=== PATIENT | male | born 1960 | race Caucasian/White ===

== ENCOUNTER 2018-12-18 21:00 | Inpatient (IN) | payer SELFPAY ==
[~2018-12-18] VITALS: Ht 185.4 cm; Wt 73.2 kg
[2018-12-18 21:06] VITALS: Ht 185.4 cm; Wt 73.2 kg
--- NOTE | 2018-12-18 22:00 | NUR ---
PT BIB SELF WITH C/O WORSENING LEFT SIDED NECK SWELLING, WEIGHT LOSS WITH DECREASED APPETITE, GENERALIZED FATIGUE, AND INTERMITTENT VOMITING X 4 MONTHS. NO VOMTING NOTED A THIS TIME. PT DENIES ANY PAIN. PT ALSO C/O DRY COUGH AND GREEN DISCHARGE FROM BILATERAL NARES X 2 YEARS. PT IS AAOX4, NO DISTRESS NOTED, RESP E/U. PT GOWNED, PLACED IN FULL CM, NSR, VSS. MSE COMPLETED BY FATUMA AGUILA.
[2018-12-18 23:22] LABS: BASOPHIL % 0.1 % (0-2)
[2018-12-18 23:26] LABS: PLATELET COUNT 119 x10^3mcL (130-400); RED CELL DISTRIBUTION WIDTH 16.1 % (11.5-14.5)
[2018-12-18 23:45] LABS: ALBUMIN 2.8 g/dL (3.4-5.0); BILIRUBIN TOTAL 0.8 mg/dL (0.20-1.00); CARBON DIOXIDE 28.5 mmol/L (21-32); CREATININE SERUM 2.9 mg/dL (0.7-1.3); POTASSIUM SERUM 4.4 mmol/L (3.5-5.1); TOTAL PROTEIN, SERUM 7.5 g/dL (6.4-8.2)
[2018-12-18 23:46] LABS: CALCIUM 14.3 mg/dL (8.5-10.1)
--- NOTE | 2018-12-19 00:22 | NUR ---
PT TAKEN OFF THE FLOOR VIA TO CT BY ZINC MINER BLASTING VIA WHEELCHAIR.
--- NOTE | 2018-12-19 00:30 | NUR ---
PT RETURNED TO BED FROM CT VIA WHEELCHAIR WITHOUT INCIDENT
--- NOTE | 2018-12-19 00:48 | NUR ---
MEDICATED PT PER MD ORDER, SEE EMAR, FLUIDS INFUSING NO PROB. PT IS AOOX4, NO DISTRESS NOTED, RESP E/U. TUNRED OFF THE LIGHTS FOR PT COMFORT, PT LAYING IN BED. PT ON FULL CM, VSS, NSR, WILL CONT TO MONITOR.
--- NOTE | 2018-12-19 02:35 | NUR ---
PT IS AAOX4, NO DISTRESS NOTED, RESP E/U. INTRUCTED PT NEED FOR URINE SAMPLE. PT WILL NOTIFY MT WHEN HE IS ABLE TO USE RESTROOM. WILL CONT TO MONITOR. PT ON FULL CM, VSS, NSR.
[2018-12-19 02:47] LABS: CHOLESTEROL/HDL RATIO 5.4
[2018-12-19 02:55] LABS: FREE T4 1.5 ng/dL (0.76-1.46); FREE THYROXINE INDEX 2.8 ug/dL (1.4-4.5); T4(THYROXINE) 7.4 ug/dL (4.7-13.3)
[2018-12-19 02:56] LABS: T3 TOTAL 0.69 ng/mL
--- NOTE | 2018-12-19 03:12 | NUR ---
PT AMBULATED TO RESTROOM WITH A STEADY GAIT AND BACK TO BED WITHOUT INCIDENT.
--- NOTE | 2018-12-19 03:32 | NUR ---
GAVE REPORT TO KELLY SILVA ON [facility]G UNIT, WHO WILL RESUME FURTHER CARE OF THIS PATIENT.
--- NOTE | 2018-12-19 03:35 | NUR ---
PT RECEIVED FROM ED VIA GRNEY ACCOMPANIED BY RN. PT A/O X4, ABLE TO MAKE NEEDS KNOWN. LEFT-SIDED NECK SWELLING NOTED. MED-SURG, DENIES ANY CP/PRESSURE. PULSES PALPABLE, NO EDEMA PRESENT. LUNG SOUNDS DIM TO KHAI BASES, BREATHING IS EVEN AND UNLABORED ON RA, DENIES SOB, NO RESP DISTRESS NOTED. PT REPORTS COUGH X2 YRS. ABD SOFT AND FLAT, BOWEL TONES ACTIVE X4 QUAD, DENIES N/V. PT REPORTS INTERMITTENT N/V, BUT DENIES ANY AT THIS TIME. VOIDS FREELY, BRP. AMBULATORY WITH STEADY GAIT. SKIN IS WARM AND DRY, INTACT. PT DENIES HAVING ANY PAIN AT THIS TIME. IV TO RAC (18g), PATENT AND INTACT, SITE FREE FROM REDNESS OR SWELLING. ORIENTED PT TO ROOM AND CALL LIGHT. NO ACUTE DISTRESS NOTED. BED IN LOWEST SETTING, SIDE RAILS UP X2, CALL LIGHT WITHIN REACH. WILL CONT TO MONITOR.
--- NOTE | 2018-12-19 03:46 | NUR ---
DR LAY AT BEDSIDE DISCUSSING XRAY RESULTS AND POC. ALL QUESTIONS AND CONCERNS ADDRESSED.
[2018-12-19 04:09] VITALS: BP 117/72
[2018-12-19 06:15] VITALS: BP 94/54
--- NOTE | 2018-12-19 06:33 | NUR ---
PT SLEPT WELL THROUGHOUT THE EVENING. BREATHING IS EVEN AND UNLABORED, NO RESP DISTRESS NOTED. PT DENIES HAVING ANY PAIN AT THIS TIME. IVF INFUSING WELL, SITE FREE FROM REDNESS OR SWELLING. NO ACUTE CHANGES ENCOUNTERED DURING SHIFT. ALL NEEDS MET. CALL LIGHT WITHIN REACH. WILL ENDORSE CARE TO AM NURSE.
[2018-12-19 06:40] LABS: CALCIUM 12.3 mg/dL (8.5-10.1); CARBON DIOXIDE 24.9 mmol/L (21-32); CREATININE SERUM 2.6 mg/dL (0.7-1.3); POTASSIUM SERUM 3.9 mmol/L (3.5-5.1)
--- NOTE | 2018-12-19 07:01 | NUR ---
PT IN NO ACUTE DISTRESS. CONTINUITY OF CARE ENDORSED TO CAITLIN SILVA. ALL QUESTIONS AND CONCERNS ADDRESSED.
[2018-12-19 07:22] VITALS: BP 93/51
--- NOTE | 2018-12-19 07:40 | NUR ---
RECEIVED PT FROM BREAKER LAYER. PT AWAKE, ALERT. A/OX4. PT ON ROOM AIR WITH DIMINISHED LUNGS SOUNDS NOTED. NO RESP DISTRESS AT THIS TIME. PT DENIES ANY PAIN. PT NOTED TO HAVE LEFT SIDED NECK SWELLING WITH NO PAIN NOTED. IV ACCESS RAC INFUSING NS AT 100ML/HR. C/D/I. ACTIVE BOWEL SOUNDS NOTED, PT REPORTS NO ISSUES WITH ELIMINATION AT THIS TIME. PERIPHERAL PULSES PALPABLE, NO EDEMA NOTED. SAFETY MEASURES IN PLACE, BED LOW AND LOCKED. CALL LIGHT WITHIN REACH.
[2018-12-19 07:44] LABS: PLATELET COUNT 88 x10^3mcL (130-400)
--- NOTE | 2018-12-19 08:15 | NUR ---
RECEIVED CALL FROM LAB, PT WBC 2.1. DR NU TORIBIO.
[2018-12-19 08:53] LABS: microscopic required? NO
[2018-12-19 11:11] LABS: AMPHETAMINE QUAL UR NONE DETECTED (See below)
--- NOTE | 2018-12-19 12:31 | NUR ---
Initial Nutrition Assessment- 207/A WEN LEWIS HR IA Dx: Hyperkalemia, acute kidney injury, new CA diagnosis PMHx: none PSHx: none Labs: (12/19) BUN 37H, CREAT 2.6H, A1C 6.6H Meds: Humulin, lactinex, NS, Zofran Diet: CCHO PO Intake: (12/19) breakfast 100%, Ht: 185.42 cm (73") Wt: 73kg (160#) BMI: 21.3 kg/m2 IBW: 184# (84 kg) %IBW: 87 UBW: 200# last year (not exactly sure) Age: 58/M Food Allergies: NKFA Skin: intact Scott: 21 Edema: none GI: last BM: 12/18 Trigger: Unintentional wt loss >10# x 1 month Per H&P, Patient is a 58 year old male with no PMH presents with left neck swelling for 4 months. Patient denies any pain there. Patient reports following up with a clinic in [place] regarding the swelling. Blood work and US were done. His blood work showed a WBC of 2000. Patient did not get his US result due to loss in follow up with PCP. Patient admits to unintentional weight loss of 40 lbs in 4 months and cough with brown sputum production for 2 years. Patient denies fever, chills, headache, shortness of breath, chest pain, abdominal pain, nausea or vomiting. Pt reports having intermittent N/V x 2 years with poor appetite and unintentional wt loss of 40#(per shift reassessment) RDN visit(12/19): Pt was awake and said that he ate all of his breakfast this morning and his appetite has improved. Pt does not have any N/V/D/C at this time. He said that he has lost weight but was unable to mention number of pounds and duration. Pt is willing to consume Glucerna dietary supplement to support weight gain. Problem with: N: no V: no D: no C:no Problems with: Chewing/Swallowing: no Current appetite: Good currently but has been poor chronically Recent wt change: pt was not sure about number of pounds and duration. Vitamin/Supplement use: Vitamin C, MVI, B12 Special diet at home: Regular Physical activity: work involves heavy physical activity level Education: No specific diet education was provided at this time. Estimated Nutritional Needs Based on actual body weight 73 kg Energy: 0210-7637 kcal/d (30-35 kcal/kg-weight gain, new cancer diagnosis) Protein: 88-109 g/d (1.2-1.5g/kg)-weight gain, new cancer dx and preservation of lean body mass Fluid: 0215-6241 ml/d (1 ml/kcal-fluid balance) or per doctor Nutrition Diagnosis 1. Unintentional weight loss related to medical condition as evidenced by self -reported significant weight loss of 40 lbs x 4 months. Intervention 1. Continue CCHO diet. 2. Recommend Glucerna BID to support weight gain. Monitor/Evaluate Goal: PO intake at least 75% of estimated needs Monitor: PO intake, Labs, GI function F/U in 3-5 days as moderate risk 12/22-12/24
--- NOTE | 2018-12-19 12:32 | NUR ---
1. Continue [facility] diet. 2. Recommend Glucerna BID to support weight gain.
--- NOTE | 2018-12-19 13:16 | NUR ---
PT RESTING WITH NO DISCOMFORT OR DISTRESS NOTED. ALL NEEDS MET AT THIS TIME. SAFETY MEASURES MAINTAINED. CALL LIGHT WITHIN REACH.
--- NOTE | 2018-12-19 13:44 | NUR ---
PT OFF THE FLOOR AT THIS TIME TO HAVE ULTRASOUND GUIDED BIOPSY. TAKEN BY WHEELCHAIR. SAFETY MAINTAINED.
[2018-12-19 14:12] LABS: BAND NEUTROPHIL 0 % (0-10); SEGMENTED NEUTROPHILS 76 % (37-75)
[2018-12-19 14:13] LABS: ATYPICAL LYMPH 4 %; BASOPHIL 0 % (0-2); MONOCYTE 14 % (0-7); PLATELET MORPHOLOGY PLATELETS DECREASED; rbc morphology (normal/abnorm) ABNORMAL (NORMAL)
[2018-12-19 14:36] VITALS: BP 113/66
[2018-12-19 14:43] LABS: UA SPECIFIC GRAVITY 1.015 (1.005-1.035)
[2018-12-19 14:44] LABS: urine erythrocyte NEGATIVE (NEGATIVE)
--- NOTE | 2018-12-19 15:30 | NUR ---
PT RESTING IN NO ACUTE DISTRESS OR DISCOMFORT. ABLE TO MAKE NEEDS KNOWN. CALL LIGHT WITHIN REACH.
--- NOTE | 2018-12-19 18:13 | NUR ---
PT RESTING IN NO ACUTE DISTRESS OR DISCOMFORT NOTED. ALL NEEDS TENDED TO THROUGHOUT SHIFT. PT STABLE AT THIS TIME. WILL CONTINUE TO MONITOR AND ENDORSE CARE TO SENIOR DRUPAL DEVELOPER. SAFETY MAINTAINED.
--- NOTE | 2018-12-19 19:57 | NUR ---
Awake and verbally responsive. No respiratory distress noted on room air. Denies pain at this time. Denies n/v. Left neck swelling noted. Will cont.to monitor. Call light within reach.
[2018-12-19 20:56] VITALS: BP 107/58
--- NOTE | 2018-12-20 04:03 | NUR ---
Afebrile. No significant change in condition noted. Denies pain. Continue on IV rocephin and zithromax. In no apparent distress.
[2018-12-20 05:25] VITALS: BP 107/58
[2018-12-20 05:26] VITALS: BP 107/62
[2018-12-20 06:50] LABS: CALCIUM 12.5 mg/dL (8.5-10.1); CARBON DIOXIDE 23.2 mmol/L (21-32); CREATININE SERUM 2.4 mg/dL (0.7-1.3); POTASSIUM SERUM 3.6 mmol/L (3.5-5.1)
[2018-12-20 07:21] VITALS: BP 105/68
--- NOTE | 2018-12-20 07:30 | NUR ---
PATIENT SLEEPING IN BED, AROUSABLE. PATIENT DENIES SOB, ON ROOM AIR. PATIENT DENIES PAIN AT THIS TIME. NO ACUTE DISTRESS NOTED AT THIS TIME. NS IV INFUSING TO RAC AT 100ML/HR, IV SITE CDI, NO S/S OF INFILTRATION. CALL LIGHT WITHIN REACH, BED IN LOW POSITION, FOR SAFETY PRECAUTION. WILL CONTINUE TO MONITOR FOR CHANGES.
--- NOTE | 2018-12-20 09:30 | NUR ---
DR JUDGE AWARE PATIENT WBCS ARE 1.8, PREVIOUS WBCS WERE 2.8. PATIENT HAS NEW DIAGNOSIS OF CA, AND HAS WBCS TRENDING DOWN. NO NEW ORDERS WERE SET FOR NEUTROPENIC PRECAUTIONS BUT WILL BEGIN TAKING STEPS IN PROTECTING THE PATIENT.
[2018-12-20 09:45] LABS: PLATELET COUNT 82 x10^3mcL (130-400); RED CELL DISTRIBUTION WIDTH 16.4 % (11.5-14.5)
--- NOTE | 2018-12-20 10:30 | NUR ---
PATIENT WAS TRANSFERRED TO ROOM 221B VIA WHEELCHAIR. MASKED WERE PLACED BY DOORWAY FOR PRECAUTION. CALL LIGHT WITHIN REACH, BED IN LOW POSITION, WILL CONTINUE TO MONITOR.
--- NOTE | 2018-12-20 13:20 | NUR ---
PATIENT RESTING IN BED EATING LUNCH, PATIENT TOLERATING MEAL. PATIENT DENIES PAIN AT THIS TIME. NO ACUTE DISTRESS NOTED. CALL LIGHT WITHIN REACH, BED IN LOW POSITION, WILL CONTINUE TO MONITOR FOR CHANGES.
[2018-12-20 15:04] LABS: BAND NEUTROPHIL 0 % (0-10); MONOCYTE 28 % (0-7); SEGMENTED NEUTROPHILS 64 % (37-75)
[2018-12-20 15:05] LABS: PLATELET MORPHOLOGY PLATELETS DECREASED
[2018-12-20 16:17] VITALS: BP 121/75
[2018-12-20 16:20] LABS: rbc morphology (normal/abnorm) ABNORMAL (NORMAL)
--- NOTE | 2018-12-20 18:10 | NUR ---
PATIENT RESTING IN BED WATCHING TV. PATIENT DENIES PAIN AT THIS TIME. NO ACUTE DISTRESS NOTED, PATIENT ON ROOM AIR. NO ACUTE CHANGES THROUGH OUT SHIFT, PATIENT IS STABLE. 1/2 NS INFUSING TO RAC AT 250ML/HR, IV SITE CDI, NO REDNESS, SWELLING OR PAIN. CALL LIGHT WITHIN REACH, BED IN LOW POSITION. WILL CONTINUE TO MONITOR AND ENDORSE REPORT TO NIGHT NURSE.
--- NOTE | 2018-12-20 19:35 | NUR ---
RECEIVED PT IN BED AWAKE, ALERT,ORIENTED X4. NO SOB NOTED ON ROOM AIR. W/ SWELLING NOTED ON THE LT SIDE OF HIS NECK, PT DENIED HAVING PAIN AT THIS TIME. NO C/O ABDL DISCOMFORT. W/ IVF 1/2 NS AT 250 CC/HR VIA RTAC. CALL LIGHT W/IN REACH.
[2018-12-20 20:43] VITALS: BP 133/72
--- NOTE | 2018-12-21 00:51 | NUR ---
PT SLEEPING SOUNDLY ON ROUNDS. NO C/O PAIN OR DISCOMFORT AT THIS TIME.
--- NOTE | 2018-12-21 05:16 | NUR ---
PT SLEPT FAIRLY. HE REMAINS ALERT AND ORIENTED X4. HE HAD NO C/O PAIN. HE AMBULATES W/O DIFFICULTY . IVF 1/2 NS INFUSING WELL AT 250 CC/HR VIA RTAC. ALL NEEDS ATTENDED TO.
[2018-12-21 05:32] VITALS: BP 119/72
[2018-12-21 06:46] LABS: ALBUMIN 2.2 g/dL (3.4-5.0); BILIRUBIN TOTAL 0.4 mg/dL (0.20-1.00); CALCIUM 12.3 mg/dL (8.5-10.1); CARBON DIOXIDE 23.5 mmol/L (21-32); POTASSIUM SERUM 3.5 mmol/L (3.5-5.1); TOTAL PROTEIN, SERUM 5.9 g/dL (6.4-8.2)
--- NOTE | 2018-12-21 07:35 | NUR ---
RECEIVED PT. IN BED A/A/O X4. NO SOB, NO N/V NOTED. PT. DENIES ANY PAIN AT THIS TIME. 1/2NS RUNNING AT 250 CC/HR VIA IV SITE AT R AC. SCD TO BLE MAINTAINED. BED IN LOW POS., CALL LIGHT WITHIN REACH. SIDE RAILS UP X3.
[2018-12-21 08:35] LABS: PLATELET COUNT 80 x10^3mcL (130-400); RED CELL DISTRIBUTION WIDTH 16.1 % (11.5-14.5)
--- NOTE | 2018-12-21 08:50 | NUR ---
REPORTED WBC (1.9) TO DR. JUDGE. NO FURTHER ORDER RECEIVED AT THIS TIME.
[2018-12-21 09:44] VITALS: BP 100/64
[2018-12-21 11:45] LABS: ATYPICAL LYMPH 3 %; BAND NEUTROPHIL 6 % (0-10); BASOPHIL 0 % (0-2); MONOCYTE 12 % (0-7); SEGMENTED NEUTROPHILS 73 % (37-75); rbc morphology (normal/abnorm) ABNORMAL (NORMAL)
[2018-12-21 11:46] LABS: PLATELET MORPHOLOGY PLATELETS DECREASED
[2018-12-21 18:23] VITALS: BP 112/70
--- NOTE | 2018-12-21 19:00 | NUR ---
REMAINS IN STABLE CONDITION AT THIS TIME. WILL CONTINUE TO MONITOR.
--- NOTE | 2018-12-21 19:25 | NUR ---
RECEIVED PT IN BED AWAKE AND READING A NEWSPAPER. HE IS ALERT,ORIENTED X4. NO SOB NOTED ON ROOM AIR. LT SIDE OF NECK W/ SWELLING. HE DENIED HAVING PAIN AT THIS TIME. NO C/O ABDL DISCOMFORT. IVF 1/2 NS INFUSING AT 250 CC/HR VIA RTAC. CALL LIGHT W/IN REACH.
[2018-12-21 21:21] VITALS: BP 117/73
--- NOTE | 2018-12-22 00:30 | NUR ---
PT ASLEEP SOUNDLY AND EASILY AROUSABLE. NO C/O DISCOMFORT AT THIS TIME.
[2018-12-22 05:27] VITALS: BP 118/72
[2018-12-22 06:14] LABS: CALCIUM 12.4 mg/dL (8.5-10.1); CARBON DIOXIDE 22.9 mmol/L (21-32); CREATININE SERUM 1.8 mg/dL (0.7-1.3); POTASSIUM SERUM 3.8 mmol/L (3.5-5.1)
--- NOTE | 2018-12-22 06:22 | NUR ---
PT SLEPT AT LONG INTERVALS. HE HAD NO C/O PAIN. NO EPISODE OF SOB OR RESP. DISTRESS. HE AMBULATES W/O DIFFICULTY. IVF 1/2 NS INFUSING WELL AT 250 CC/HR VIA RTAC.
[2018-12-22 06:52] LABS: PLATELET COUNT 88 x10^3mcL (130-400); RED CELL DISTRIBUTION WIDTH 15.9 % (11.5-14.5)
--- NOTE | 2018-12-22 07:10 | NUR ---
RECEIVED PT FROM CARPENTER'S ASSISTANT RN. Augie/JOSE MANUEL. MED SURG. DENIES CHEST PAIN/PRESSURE. RESPIRATIONS EQUAL AND UNLABORED ON RA. DENIES SOB. LT NECK EDEMA NOTED. NO REDNESS. PT DENIES ANY PAIN AT THIS TIME. IV TO RAC PATENT AND INFUSING. NO REDNESS OR SWELLING NOTED. PT SITTING UP IN BED EATING BREAKFAST. WILL CONTINUE TO MONITOR. CALL LIGHT IN REACH. BED IN LOWEST POSITION.
[2018-12-22 09:06] VITALS: BP 112/66
--- NOTE | 2018-12-22 09:11 | NUR ---
PT SITTING UP IN BED. NO ACUTE RESP DISTRESS NOTED ON RA. GIVEN PO MEDS. TOLERATED WELL. VSS. PT DENIES ANY PAIN AT THIS TIME. IV PATENT AND INFUSING TO RFA. NO REDNESS OR SWELLING NOTED. WILL CONTINUE TO MONITOR. CALL LIGHT IN REACH. BED IN LOWEST POSITION.
[2018-12-22 10:33] LABS: BAND NEUTROPHIL 0 % (0-10); MONOCYTE 6 % (0-7); PLATELET MORPHOLOGY PLATELETS DECREASED; SEGMENTED NEUTROPHILS 88 % (37-75); rbc morphology (normal/abnorm) ABNORMAL (NORMAL)
--- NOTE | 2018-12-22 10:33 | NUR ---
PT SITTING UP AT BEDSIDE. NO ACUTE RESP DISTRESS NOTED ON RA. PT DENIES ANY PAIN AT THIS TIME. IV PATENT AND INFUSING TO RAC. NO REDNESS OR SWELLING NOTED. WILL CONTINUE TO MONITOR. CALL LIGHT IN REACH. BED IN LOWEST POSITION.
--- NOTE | 2018-12-22 11:33 | NUR ---
PT SITTING UP IN BED. NO ACUTE RESP DISTRESS NOTED ON RA. IV PATENT AND INFUSING. NO REDNESS OR SWELLING NOTED. GIVEN PO MEDS. TOLERATED WELL. BLOOD SUGAR CHECKED 96. NO COVERAGE NEEDED. PT DENIES ANY PAIN AT THIS TIME. WILL CONTINUE TO MONITOR. CALL LIGHT IN REACH. BED IN LOWEST POSITION.
--- NOTE | 2018-12-22 13:27 | NUR ---
PT SITTING UP AT BEDSIDE. NO ACUTE RESP DISTRESS NOTED ON RA. GIVEN PO MEDS. TOLERATED WELL. PT DENIES ANY PAIN AT THIS TIME. WILL CONTINUE TO MONITOR. CALL LIGHT IN REACH. BED IN LOWEST POSITION.
--- NOTE | 2018-12-22 16:02 | NUR ---
PT SITTING UP IN BED WATCHING TV. NO ACUTE RESP DISTRESS NOTED ON RA. IV PATENT AND INFUSING. NO REDNESS OR SWELLING NOTED. PT DENIES ANY PAIN AT THIS TIME. BLOOD SUGAR CHECKED WAS 124. NO COVERAGED NEEDED. WILL CONTINUE TO MONITOR. CALL LIGHT IN REACH. BED IN LOWEST POSITION.
[2018-12-22 17:43] VITALS: BP 115/68
--- NOTE | 2018-12-22 18:54 | NUR ---
PT SITTING UP IN CHAIR AT BEDSIDE. NO ACUTE RESP DISTRESS NOTED ON RA. PT DENIES ANY PAIN AT THIS TIME. IV TO RAC PATENT AND INFUSING. NO REDNESS OR SWELLING NOTED. WILL ENDORSE TO WILDLIFE VETERINARIAN RN. CALL LIGHT IN REACH. BED IN LOWEST POSITION.
[2018-12-22 19:15] VITALS: BP 132/74
--- NOTE | 2018-12-22 19:15 | NUR ---
RECEIVED PT SITTING ON A CHAIR AT THIS TIME.DENIES ANY PAIN OR DISCOMFORT.BP 132/74 MMHG,HR 93.L SIDED SWELLING TO NECK NOTED.DENIES PAIN TO SITE.DENIES PAIN WHEN CHEWING OR SWALLOWING.WILL CONTINUE TO MONITOR.
--- NOTE | 2018-12-23 04:44 | NUR ---
PT SLEPT WELL ALL NIGHT.DENIES ANY PAIN OR DISCOMFORT.NO ASE NOTED FROM ROCEPHIN AND ZITHROMAX IV ATB.ALL NEEDS MET.WILL CONTINUE TO MONITOR.
[2018-12-23 06:01] LABS: calcium (part of PTHIC) 12.3 mg/dL (8.7-10.2)
[2018-12-23 06:07] VITALS: BP 121/78
[2018-12-23 06:43] LABS: CALCIUM 12.1 mg/dL (8.5-10.1); CARBON DIOXIDE 24.4 mmol/L (21-32); CREATININE SERUM 1.7 mg/dL (0.7-1.3); POTASSIUM SERUM 4.2 mmol/L (3.5-5.1)
--- NOTE | 2018-12-23 07:18 | NUR ---
RECEIVED PATIENT FROM CLINICAL PSYCHIATRIST NURSE. PATIENT IS AWAKE, ALERT AND ORIENTED. ON ROOM AIR, DENIES SOB, BREATHING EVEN AND UNLABORED. DENIES CHEST PAIN. EDEMA NOTED TO LEFT NECK, PATIENT DENIES DIFFICULTY SWALLOWING. IVF INFUSING WELL ORDERED, NO S/S ERYTHEMA AT SITE. CALL LIGHT WITHIN EASY REACH. WILL CONTINUE PLAN OF CARE.
[2018-12-23 07:40] LABS: PLATELET COUNT 81 x10^3mcL (130-400)
[2018-12-23 08:09] VITALS: BP 123/71
--- NOTE | 2018-12-23 10:41 | NUR ---
DR JUDGE NOTIFIED OF AM LABS: WBC 1.8. NO FURTHER ORDERS AT THIS TIME.
--- NOTE | 2018-12-23 11:36 | NUR ---
1. Continue CCHO diet with Glucerna BID.
--- NOTE | 2018-12-23 11:36 | NUR ---
Follow-up Nutrition Assessment- 221/B WEN LEWIS MERRICK MR Dx: Hyperkalemia, acute kidney injury, new CA diagnosis Labs: (12/23) BG 142H, BUN 35H, CREAT 1.7H, A1C 6.6H, WBC 1.8L Meds: D50%, Humulin, lactinex, zofran Diet: CCHO PO intake: (12/21-12/22) 100% Weights: (12/19) 73 kg Skin: intact Scott: 22 Edema: noted to LT neck Last BM: 12/21 RDN visit (12/23): Pt was awake and said that he ate all of his breakfast this morning but his appetite is fair. Pt does not have any N/V/D/C at this time. Pt said that he is consuming Glucerna twice a day and finishing the entire carton each time. Estimated Nutritional Needs Based on actual body weight 73 kg Energy: 7156-7707 kcal/d (30-35 kcal/kg-weight gain, new cancer diagnosis) Protein: 88-109 g/d (1.2-1.5g/kg)-weight gain, new cancer dx and preservation of lean body mass Fluid: 5316-7236 ml/d (1 ml/kcal-fluid balance) or per doctor Nutrition Diagnosis 1.Unintentional weight loss related to medical condition as evidenced by self -reported significant weight loss of 40 lbs x 4 months. (improving) Intervention 1. Continue CCHO diet with Glucerna BID. Monitor/Evaluate Previous goal: CCHO diet, Glucerna BID (Met) Goal: PO intake at least 75% of estimated needs Monitor: PO intake, Labs, GI function F/U in 7 days as low risk 12/30
[2018-12-23 11:59] VITALS: BP 109/62
[2018-12-23 12:36] LABS: ATYPICAL LYMPH 0 %; BAND NEUTROPHIL 2 % (0-10); BASOPHIL 0 % (0-2); MONOCYTE 8 % (0-7); PLATELET MORPHOLOGY PLATELETS DECREASED; SEGMENTED NEUTROPHILS 70 % (37-75); rbc morphology (normal/abnorm) ABNORMAL (NORMAL)
[2018-12-23 14:09] LABS: PTH INTACT < 6 pg/mL (15-65)
--- NOTE | 2018-12-23 14:41 | NUR ---
DR JUDGE PAGED REGARDING POSSIBLE NEUTROPENIC PREC FOR PATIENT. PENDING CALL BACK.
--- NOTE | 2018-12-23 16:02 | NUR ---
DISCUSSED WITH DR JUDGE NEED FOR NEUTROPENIC PREC. PREC NOT TO BE ORDERED AT THIS TIME PER DR JUDGE.
[2018-12-23 16:04] VITALS: BP 109/62
[2018-12-23 16:27] VITALS: BP 113/71
--- NOTE | 2018-12-23 18:12 | NUR ---
PATIENT RESTING EASY IN BED. IVF INFUSING WELL TO NEW IV SITE TO RFA, NO S/S ERYTHEMA AT SITE. CALL LIGHT WITHIN EASY REACH. WILL ENDORSE PATIENT CARE TO TELECOMMUNICATIONS REPAIRER NURSE.
--- NOTE | 2018-12-23 19:25 | NUR ---
PT RECEIVED A/O X4, ABLE TO MAKE NEEDS KNOWN. LEFT-SIDED NECK SWELLING NOTED. MED-SURG, DENIES ANY CP/PRESSURE. PULSES PALPABLE, NO EDEMA PRESENT. BREATHING IS EVEN AND UNLABORED ON RA, DENIES SOB, NO RESP DISTRESS NOTED. ABD SOFT AND FLAT, BOWEL TONES ACTIVE X4 QUAD, DENIES N/V. VOIDS FREELY, BRP. AMBULATORY WITH STEADY GAIT. SKIN IS WARM AND DRY, INTACT. PT DENIES HAVING ANY PAIN AT THIS TIME. IV TO RFA (20g), PATENT AND INTACT, SITE FREE FROM REDNESS OR SWELLING. FAMILY AT BEDSIDE. NO ACUTE DISTRESS NOTED. BED IN LOWEST SETTING, SIDE RAILS UP X2, CALL LIGHT WITHIN REACH. WILL CONT TO MONITOR.
[2018-12-23 20:58] VITALS: BP 127/68
--- NOTE | 2018-12-23 23:08 | NUR ---
PT'S WBC-1.8, DR LAY MADE AWARE. NEUTROPENIC PRECAUTIONS INITIATED ORDERED PER DR LAY.
--- NOTE | 2018-12-24 00:21 | NUR ---
PT RESTING IN BED, AWAKE AND ALERT. BREATHING IS EVEN AND UNLABORED, NO RESP DISTRESS NOTED. PT DENIES HAVING ANY PAIN AT THIS TIME. IVF INFUSING WELL, SITE WNL. NO ACUTE DISTRESS OBSERVED. CALL LIGHT WITHIN REACH. WILL CONT TO MONITOR.
[2018-12-24 05:50] VITALS: BP 126/77
--- NOTE | 2018-12-24 06:05 | NUR ---
PT SLEPT WELL THROUGHOUT THE EVENING. BREATHING IS EVEN AND UNLABORED, NO RESP DISTRESS NOTED. PT DENIES HAVING ANY PAIN AT THIS TIME. IVF INFUSING WELL TO [facility], SITE WNL. NO ACUTE CHANGES ENCOUNTERED DURING SHIFT. ALL NEEDS MET. CALL LIGHT WITHIN REACH. WILL ENDORSE CAORE TO AM NURSE.
--- NOTE | 2018-12-24 07:27 | NUR ---
PT IN NO ACUTE DISTRESS. CONTINUITY OF CARE ENDORSED TO SUKHJINDER SILVA, ALL QUESTIONS AND CONCERNS ADDRESSED.
--- NOTE | 2018-12-24 08:00 | NUR ---
RECEIVED PATIENT WHO IS PLEASANT AND COOPERAITVE WITH CARE. IV INTACT AND PATIENT CONTINUED ON IV FLUIDS ORDERED. LAST BLOOD SUGAR AT THIS TIME AT 95 AND NO COVERAGE WAS INDICATED. PATIENT ON PREDNISONE AND HAD NEVER BEEN DIABETIC PRIOR. PATIENT HAS BEEM OOB, FULLY MOBILE AND DENIES PAIN AT THIS TIME. HE HAS NOT COMPLAINED OF SOB OR NAUSEA AND NOTED TO HAVE LOST SOME WEIGHT AND HE HAS BEEN NOTED TO HAVE A MASS TO THE NECK AND A BIOPSY WAS DONE AND WAITING FINAL REPORT. PATEINT HAS BEEN WITH WBC OF 1.8 AND THE HAD H AND H OF 9.5/27. PATIENT HAS BEEN WITH PLATLET OF 81 AND THE PATIENT HAS BEEN ON ROCPHINE AND ZITHROMAX AND NO ADVERSE REACTION NOTED.
[2018-12-24 10:12] VITALS: BP 128/77
--- NOTE | 2018-12-24 14:11 | NUR ---
CONTINUED IN ISOLATION FOR NEUTROPENIC AND PATIENT DENIES PAIN AT THIS TIME. DOES NOT COMPLAIN OF THE MASS TO THE NECK NORE ANY PAIN TO THE CHEST. PATIENT IS HOPING TO GO HOME TODAY. PLAN IS FOR DISCHARGE HOME NAD TO FOLLOW UP WITH DINESH GUNDERSON FOR ONCOLOGY CONSULTATION.
[2018-12-24 15:09] VITALS: BP 128/77
--- NOTE | 2018-12-24 16:04 | NUR ---
GAVE DISCHARGE INSTRUCTIONS AND REMOVED THE IV INDICATED. PATIENT TO FOLLOW UP WITH [facility] WHEN CAN BE ARRANGED. PATIENT IS ANXIOUS TO LEAVE. WILL DISCHARGE HOME WITH ALL BELONGINGS.
--- NOTE | 2018-12-24 16:35 | NUR ---
PATIENT HAS NO OPEN AREAS AND THE NECK ALTHOUGH WITH A OBVIOUS DEFORMITY IS INTAC AND NO REDNESS NOTED. DISHCARGE TO HOME AND WILL FOLLOW UP WTI HUY IDNICATED.
== END 2018-12-24 16:40 | disposition home or self-care (01) | DRG 823 ==
LOC: ED 21:00 → MU 12-19 02:01
PROVIDERS: Emergency Medicine; ADMIT General Practice
PROC: 07B23ZX Excision of Left Neck Lymphatic, Percutaneous Approach, Diagnostic (ICD-10-PCS; principal; 2018-12-19)
DX: C85.91 Non-Hodgkin lymphoma, unspecified, lymph nodes of head, face, and neck (principal); J18.9 Pneumonia, unspecified organism; N17.0 Acute kidney failure with tubular necrosis; E43 Unspecified severe protein-calorie malnutrition; E87.1 Hypo-osmolality and hyponatremia; D61.818 Other pancytopenia; E11.9 Type 2 diabetes mellitus without complications; R59.9 Enlarged lymph nodes, unspecified; E83.52 Hypercalcemia; E11.65 Type 2 diabetes mellitus with hyperglycemia; R74.0 Nonspecific elevation of levels of transaminase and lactic acid dehydrogenase [LDH]; Z68.22 Body mass index [BMI] 22.0-22.9, adult
CPT/HCPCS: 82962; 84439; 88344; J0456; J0696; J2001; J7030; J7042; J7050; J7512